=== PATIENT | female | born 1955 | race Caucasian/White ===

== ENCOUNTER → 2017-06-11 08:58 | Outpatient (CLI) | payer BC ==
--- NOTE | 2017-06-19 15:46 | EC ---
PATIENT:ANTHONY URRUTIA DATE OF SERVICE: 06/11/17 SEX: F MEDICAL RECORD: [id number] DATE OF : 55 LOCATION:D[facility] AGE OF PATIENT: 62 ADMISSION DATE: 06/11/17 REFERRING PHYSICIAN: INTERPRETING PHYSICIAN: LENY FATIMA MD ECHOCARDIOGRAM REPORT ECHO CHARGES 4 ECHO COMPLETE CLINICAL DIAGNOSIS: PALPITATIONS, HX OF MITRAL VALVE PROLAPSE ECHOCARDIOGRAPHIC MEASUREMENTS (adult normal given) AC root (d.<3.7cm) 2.9 cm LV Septum d (<1.2 cm> 1.1 cm Valve Excursion 1.5 cm LV Septum (systole) 1.4 cm Left Atria (s.<4.0cm> 3.1 cm LVPW d(<1.2cm) 1.2 cm RV (d.<2.3cm) 31 cm LVPW (sytole) 1.5 cm LV diastole(<5.6CM) 4.2 cm MV E-F(>70mm/sec) cm LV systole 2.6 cm LVOT Diameter 1.7 cm MV exc.(>10mm) cm Est.ejection fraction (50-75%) % Pericardial Effusion N DOPPLER: LVIT cm/sec A 98.0 cm/sec E 122 cm/sec LA cm/sec RVSP 42 mmHg LVOT 119 cm/sec AOP1/2T 308 m/s Asc. Ao 132 cm/sec RVOT 74 cm/sec RA cm/sec PA 104 cm/sec AV Gradient Peak 6.95 mmHg AV Mean 3.17 mmHg AV Area 1.8 cm MV Gradient Peak 7.45 mmHg MV Mean 2.77 mmHg MV Area cm COMMENTS: Parts Counter Sales Person: Tabby GOODSON Boiler Cleaner: 2 Dr. Cifuentes TAPE# PACS DATE OF SERVICE: 06/11/2017 FINDINGS: 1. Left ventricular chamber size is within normal limits. Left ventricular systolic function is normal. Overall ejection fraction estimated at 60%. 2. Left atrium, right atrium and right ventricular chamber sizes are within normal limits. 3. Valvular structures have normal structure and motion. No evidence of mitral valve prolapse is seen. 4. Doppler interrogation reveals mild aortic insufficiency, mild mitral ECHOCARDIOGRAM REPORT [id number] ANTHONY URRUTIA regurgitation, moderate tricuspid regurgitation. No other valvular insufficiency or stenosis. 5. No evidence of pericardial effusion or left ventricular thrombus. TRANSINT:[id number] Voice Confirmation ID: [id number] DOCUMENT ID: [id number] LENY FATIMA MD at 1546 CC: [id number] DICTATION DATE: 06/11/17 1130 INFECTION PREVENTION PRACTITIONER: 06/11/17 1142 DEP CLI 06/11/17 [place] [id number] [place] [id number]
== END | disposition home or self-care (01) ==
LOC: D.ECHO 08:58
DX: R00.2 Palpitations (principal); I34.1 Nonrheumatic mitral (valve) prolapse

== ENCOUNTER → 2018-03-25 19:44 | Outpatient (CLI) | payer OTHER | END | disposition home or self-care (01) | LOC: D.MAMMO 08:00 | DX: Z12.31 Encounter for screening mammogram for malignant neoplasm of breast (principal) ==

== ENCOUNTER → 2020-11-29 08:30 | Outpatient (CLI) | payer MEDICARE, BC | END | disposition home or self-care (01) | LOC: D.MAMMO 08:30 | PROVIDERS: ATTEND Family Medicine | DX: Z12.31 Encounter for screening mammogram for malignant neoplasm of breast (principal) ==